=== PATIENT | male | born 1990 | race Two or more races ===

== ENCOUNTER 2016-11-13 02:01 | Emergency (ER) | payer SELFPAY ==
[~2016-11-13] VITALS: Ht 180.3 cm; Wt 81.6 kg
[2016-11-13 03:23] VITALS: BP 116/77
[2016-11-13] MEDS ORDERED: KETOROLAC TROMETH 60MG/2ML VIAL IM ONE (03:45)
[2016-11-13] MEDS ORDERED: HYDROcodone-ACET 10/325MG TAB PO ONE (03:45)
== END 2016-11-13 04:31 | disposition home or self-care (01) ==
LOC: ER 02:06
DX: S82.434A Nondisplaced oblique fracture of shaft of right fibula, initial encounter for closed fracture (principal); W19.XXXA Unspecified fall, initial encounter; Y93.89 Activity, other specified; Y99.8 Other external cause status; Y92.89 Other specified places as the place of occurrence of the external cause
CPT/HCPCS: 29515; 73610; 96372; 99284; J1885